=== PATIENT | male | born 1975 | race Caucasian/White ===

== ENCOUNTER 2019-05-18 20:44 | Emergency (ER) | payer MEDICAID ==
[~2019-05-18] VITALS: Ht 172.7 cm; Wt 95.0 kg
[2019-05-18] MEDS ORDERED: HYDROCODONE/ACETAMINOPHEN 5/325MG TABLET PO STA (22:45)
[2019-05-18 23:08] LABS: EOSINOPHILS % 1.8 % (0.0-5.0); HEMATOCRIT. 36.9 % (42.0-52.0); HEMOGLOBIN. 12.6 g/dL (14.0-18.0); LYMPHOCYTES % 25.4 % (20.0-50.0); MEAN CORPUSCULAR HEMOGLOBIN 29.9 pg (28.0-32.0); MEAN CORPUSCULAR VOLUME 87.6 fL (80.0-94.0); MONOCYTES % 6.5 % (2.0-8.0); NEUTROPHILS % 65.3 % (40.0-76.0); PLATELET 263 x1000/uL (130-400); RED BLOOD CELL COUNT 4.21 mill/uL (4.7-6.1); RED CELL DISTRIBUTION WIDTH 13.8 % (11.6-14.6)
[2019-05-18 23:12] LABS: CHLORIDE 107 mEq/L (98-107)
[2019-05-19 02:41] VITALS: BP 144/81
== END 2019-05-19 02:41 | disposition home or self-care (01) ==
LOC: ER 20:44
DX: M94.0 Chondrocostal junction syndrome [Tietze] (principal); J45.909 Unspecified asthma, uncomplicated; I10 Essential (primary) hypertension; Z88.0 Allergy status to penicillin
CPT/HCPCS: 36415; 71045; 80053; 84484; 85025; 85379; 93005; 99284; Z7610